=== PATIENT | male | born 1975 | race Caucasian/White ===

== ENCOUNTER 2016-12-08 12:01 | Emergency (ER) | payer SELFPAY ==
[~2016-12-08] VITALS: Ht 177.8 cm; Wt 85.0 kg
[~2016-12-08 12:01] MED LIST: LITHIUM; PERC5TAB12 PO
--- NOTE | 2016-12-08 12:08 | PD ---
HPI Chief Complaint: psychiatric symptoms Time Seen by Provider: 12:07 Travel History International Travel<30 days: No Contact w/Intl Traveler<30days: No History of Present Illness HPI 41-year-old male with PMH of schizophrenia presents to the ED under Burdick act for psychiatric evaluation. According to the Burdick act paper work the patient was "exhibiting signs of narcotic impairments, destroyed several items of personal property inside his residence and began yelling and screaming obscenities at his mother. Patricia was not able to hold rational conversation. He stated his mother was poisoning him with drugs and gas was being pumped throughout his residence in an effort to kill him. Patricia chased his mother out of the residence causing concern from the neighbors who in turn contacted law enforcement." On presentation to the emergency room the patient is twitching and moving erratically. He is threatening physical violence. He required injection of Haldol and Ativan. He is unable to provide any meaningful history. PFSH Past Medical History Blood Disorders: No Chemotherapy: No Diminished Hearing: No Psychiatric: No Immunizations Current: Yes Radiation Therapy: No Past Surgical History Other Surgery: Yes (RIGHT FACIAL SURGERY) Social History Alcohol Use: Yes Tobacco Use: Yes (1PK) Substance Use: Yes Allergies-Medications (Allergen,Severity, Reaction): Coded Allergies: No Known Allergies (Verified , 12/08/16) Reported Meds & Prescriptions Reported Meds & Active Scripts Active Review of Systems Except as stated in HPI: all other systems reviewed are Neg Physical Exam Exam Limitations: Uncooperative Narrative GENERAL: Well-nourished, well-developed white male in no acute distress. SKIN: Focused skin assessment warm/dry. Old crusted wound on the bridge of the nose. HEAD: Normocephalic. EYES: No scleral icterus. No injection or drainage. NECK: Supple, trachea midline. No JVD or lymphadenopathy. CARDIOVASCULAR: Regular rate and rhythm without murmurs, gallops, or rubs. RESPIRATORY: Breath sounds clear and equal bilaterally. No accessory muscle use. GASTROINTESTINAL: Abdomen soft, non-tender, nondistended. Active bowel sounds MUSCULOSKELETAL: No cyanosis, or edema. Patient moves from sitting to lying down positions easily. BACK: Nontender without obvious deformity. No CVA tenderness. Data Data Last Documented VS Vital Signs Date Time Temp Pulse Resp B/P (MAP) Pulse Ox O2 Delivery O2 Flow Rate FiO2 10/2/17 12:39 98.4 87 20 132/71 (91) 96 Room Air Orders Orders Complete Blood Count With Diff (12/08/16 12:07) Comprehensive Metabolic Panel (12/08/16 12:07) Psych Screen (12/08/16 12:07) Drug Screen, Random Urine (12/08/16 12:07) Alcohol (Ethanol) (12/08/16 12:07) Haloperidol Inj (Haldol Inj) (12/08/16 12:30) Lorazepam Inj (Ativan Inj) (12/08/16 12:30) Labs Laboratory Tests Test 12/08/16 12:30 12/08/16 12:35 White Blood Count 11.6 TH/MM3 Red Blood Count 4.55 MIL/MM3 Hemoglobin 13.1 GM/DL Hematocrit 39.3 % Mean Corpuscular Volume 86.5 FL Mean Corpuscular Hemoglobin 28.9 PG Mean Corpuscular Hemoglobin Concent 33.4 % Red Cell Distribution Width 13.0 % Platelet Count 236 TH/MM3 Mean Platelet Volume 8.3 FL Neutrophils (%) (Auto) 64.2 % Lymphocytes (%) (Auto) 20.6 % Monocytes (%) (Auto) 12.8 % Eosinophils (%) (Auto) 1.9 % Basophils (%) (Auto) 0.5 % Neutrophils # (Auto) 7.5 TH/MM3 Lymphocytes # (Auto) 2.4 TH/MM3 Monocytes # (Auto) 1.5 TH/MM3 Eosinophils # (Auto) 0.2 TH/MM3 Basophils # (Auto) 0.1 TH/MM3 CBC Comment DIFF FINAL Differential Comment Blood Urea Nitrogen 16 MG/DL Creatinine 1.16 MG/DL Random Glucose 91 MG/DL Total Protein 7.9 GM/DL Albumin 3.8 GM/DL Calcium Level 9.2 MG/DL Alkaline Phosphatase 87 U/L Aspartate Amino Transf (AST/SGOT) 93 U/L Alanine Aminotransferase (ALT/SGPT) 87 U/L Total Bilirubin 0.8 MG/DL Sodium Level 138 MEQ/L Potassium Level 3.1 MEQ/L Chloride Level 101 MEQ/L Carbon Dioxide Level 30.0 MEQ/L Anion Gap 7 MEQ/L Estimat Glomerular Filtration Rate 69 ML/MIN Ethyl Alcohol Level LESS THAN 3 MG/DL Urine Opiates Screen NEG Urine Barbiturates Screen NEG Urine Amphetamines Screen POS Urine Benzodiazepines Screen NEG Urine Cocaine Screen POS Urine Cannabinoids Screen NEG MDM Medical Decision Making Medical Screen Exam Complete: Yes Emergency Medical Condition: Yes Differential Diagnosis Adjustment disorder versus anxiety versus bipolar versus depression versus dementia versus electrolyte disorder versus malingering versus mood disorder versus ODD versus psychosis versus PTSD versus schizophrenia versus schizoaffective disorder versus substance-induced mood disorder versus other Narrative Course 41-year-old male with PMH of schizophrenia presents to the ED under Burdick act for psychiatric evaluation. Please see the iNeed act for details. On arrival to the ED the patient is combative, moving erratically, required IM injections of Haldol and Ativan. Patient was resistant to exam, however I was able to obtain a limited physical which was reassuring. No concerning abnormalities of the CBC or CMP. Tox screen positive for vitamins and cocaine. The patient is medically cleared and awaiting evaluation by the psychiatrist. Discharge will be per their recommendations. Diagnosis Primary Impression: Medical clearance for psychiatric admission Vita Montes Dec 08, 2016 12:08
[2016-12-08] MEDS ORDERED: LORazepam 2 MG/ML VIAL IM ONE (12:30)
[2016-12-08] MEDS ORDERED: HALOPERIDOL LACTATE 5 MG/ML AMP IM ONE (12:30)
[2016-12-08 12:39] VITALS: BP 132/71; PULSE 87; RESP 20; TEMP 98.4; O2SAT 96
[2016-12-08 12:58] LABS: AUTOMATED NEUTROPHIL # 7.5 TH/MM3 (1.8-7.7); BASOPHIL # 0.1 TH/MM3 (0-0.2); BASOPHIL % 0.5 % (0.0-2.0); EOSINOPHIL # 0.2 TH/MM3 (0-0.4); EOSINOPHIL % 1.9 % (0.0-4.0); HEMATOCRIT 39.3 % (39.0-51.0); HEMO FLAGS DIFF FINAL; LYMPH % 20.6 % (9.0-44.0); LYMPHOCYTE # 2.4 TH/MM3 (1.0-4.8); MEAN CELL VOLUME 86.5 FL (80.0-100.0); MEAN CORPUSCULAR HEMOGLOBIN 28.9 PG (27.0-34.0); MEAN CORPUSCULAR HGB CONC 33.4 % (32.0-36.0); MONO % 12.8 % (0.0-8.0); NEUT % 64.2 % (16.0-70.0); PLATELET COUNT 236 TH/MM3 (150-450); RED BLOOD COUNT 4.55 MIL/MM3 (4.50-5.90); WHITE BLOOD COUNT 11.6 TH/MM3 (4.0-11.0)
[2016-12-08 13:05] LABS: ALT (GPT) 87 U/L (12-78); ANION GAP 7 MEQ/L (5-15); AST (GOT) 93 U/L (15-37); BLOOD UREA NITROGEN 16 MG/DL (7-18); CHLORIDE 101 MEQ/L (98-107); GLOMERULAR FILTRATION RATE 69 ML/MIN (>89); POTASSIUM 3.1 MEQ/L (3.5-5.1); SODIUM (NA) 138 MEQ/L (136-145)
[2016-12-08 13:06] LABS: ALCOHOL LESS THAN 3 MG/DL (0-5)
[2016-12-08 13:07] LABS: ALKALINE PHOSPHATASE 87 U/L (45-117); TOTAL BILIRUBIN ADULT 0.8 MG/DL (0.2-1.0)
[2016-12-08 18:38] VITALS: BP 126/74; PULSE 70; RESP 18; O2SAT 97
[2016-12-09 07:15] VITALS: BP 117/58; PULSE 69; RESP 16; TEMP 98.1; O2SAT 97
[2016-12-09 10:06] VITALS: BP 121/58
[2016-12-09 10:46] VITALS: BP 114/69; PULSE 66; RESP 20
--- NOTE | 2016-12-09 12:40 | PD ---
History of Present Illness Chief Complaint: Psychiatric Symptoms Time Seen by Provider: 12:10 Travel History International Travel<30 Days: No Contact w/Intl Traveler<30days: No Known affected area: No Legal Status Legal Status: Burdick Act Burdick Act Signed By: Paradise Hoover History of Present Illness: History of Present Illness 41-year-old male with history of substance use disorder who presents to the ED under Burdick act for psychiatric evaluation. According to the Burdick act paper work the patient was "exhibiting signs of narcotic impairments, destroyed several items of personal property inside his residence and began yelling and screaming obscenities at his mother. Patricia was not able to hold rational conversation. He stated his mother was poisoning him with drugs and gas was being pumped throughout his residence in an effort to kill him. Patricia chased his mother out of the residence causing concern from the neighbors who in turn contacted law enforcement." On presentation to the emergency room the patient is twitching and moving erratically. He is threatening physical violence. He required injection of Haldol and Ativan. EMR reviewed. Current toxicology is positive for amphetamines as well as cocaine. He admits to taking some unknown substance prior to being placed under a Burdick act and states it was put in his drink. Patient is seen. He is alert and oriented. No eye contact. He continues to have twitching and non purposeful movements. He is circumstantial in his speech and is having difficulty staying on subject. He denies any hallucinations. Denies suicidal or homicidal ideation. Admits to recent drug use and is not interested in treatment for substance abuse. With his permission I spoke with his mother Chasity at [phone]. She states that he was acting strange when she got home last night and that he had broken some items in the house . She reports he has been diagnosed as having bipolar disorder in the past but that he is not in treatment and doesn't take his medications when prescribed. . PFSH Past Medical History Blood Disorders: No Chemotherapy: No Diminished Hearing: No Psychiatric: No Immunizations Current: Yes Radiation Therapy: No Schizophrenia: Yes Past Surgical History Surgical History: Unable to Obtain Other Surgery: Yes (RIGHT FACIAL SURGERY) Psychiatric History Psychiatric History Hx Psychiatric Treatment: PATIENT DENIES. HIS MOTHER REPORTED TO POLICE HX OF SCHIZOPHRENIA. IN HIS PREVIOUS MEDICAL RECORDS HERE, THERE IS NO MENTION OF ANY PSYCHIATRIC DIAGNOSIS History of Inpatient Treatment: No Guns or firearms in home: No Social History Lives with his mother Hx Alcohol Use: Yes Hx Tobacco Use: Yes (1PK) Hx Substance Use: Yes Substance Use Type: Crack, Amphetamines-Stimulants Other Substances Used: MEDICAL RECORDS INDICATE PAST SUBSTANCE ABUSE HISTORY Hx of Substance Use Treatment: Yes (Multiple at [facility]) Family Psychiatric History None reported Allergies-Medications (Allergen,Severity, Reaction): Coded Allergies: No Known Allergies (Verified , 12/08/16) Reported Meds & Prescriptions Reported Meds & Active Scripts Active Review of Systems ROS Limitations: Poor Historian Exam Alert: Yes [place]: Person Mood: Anxious, Other Affect: Restricted Speech: Clear, Circumstantial Eye Contact: None Memory Intact: Comment (Not t etsed) Hallucinations: Other (deneis any) Delusions: No Suicidal: Ideation (deneis any) Homicidal: Ideation (deneis any) Insight/Judgement Poor. Not impaired. MDM Medical Decision Making Medical Record Reviewed: Yes Assessment/Plan 41-year-old male with history of substance use disorder who presents to the ED under Burdick act for psychiatric evaluation. According to the Burdick act paper work the patient was "exhibiting signs of narcotic impairments, destroyed several items of personal property inside his residence and began yelling and screaming obscenities at his mother. Patricia was not able to hold rational conversation. He stated his mother was poisoning him with drugs and gas was being pumped throughout his residence in an effort to kill him. Patricia chased his mother out of the residence causing concern from the neighbors who in turn contacted law enforcement." Patient tested positive for amphetamines as well as cocaine. He is not psychotic at present time. No suicidal or homicidal ideation. Not ready to address his use of substances. Does not meet Burdick act criteria. He deos nto presnet an unstable mental illness as per Ba ker act. His symptoms when he was placed under the BA were most likely as the result of his substance use. BA will be lifted. Once he is able to ambulate well and is safe to be discharged he can be discharged. 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
--- NOTE | 2016-12-09 13:33 | PD ---
Physical Exam Time Seen by Provider: 13:32 Narrative Please refer to previous providers documentation for details on the patient's current visit. Data Data Last Documented VS Vital Signs Date Time Temp Pulse Resp B/P (MAP) Pulse Ox O2 Delivery O2 Flow Rate FiO2 12/09/16 10:46 66 20 114/69 (84) 12/09/16 10:06 97 12/09/16 07:15 98.1 Room Air Orders Orders Complete Blood Count With Diff (12/08/16 12:07) Comprehensive Metabolic Panel (12/08/16 12:07) Psych Screen (12/08/16 12:07) Drug Screen, Random Urine (12/08/16 12:07) Alcohol (Ethanol) (12/08/16 12:07) Haloperidol Inj (Haldol Inj) (12/08/16 12:30) Lorazepam Inj (Ativan Inj) (12/08/16 12:30) Diet Regular Basic (12/09/16 Breakfast) Diet Regular Basic (12/09/16 Lunch) Diet Regular Basic (12/09/16 Dinner) Labs Laboratory Tests Test 12/08/16 12:30 12/08/16 12:35 White Blood Count 11.6 TH/MM3 Red Blood Count 4.55 MIL/MM3 Hemoglobin 13.1 GM/DL Hematocrit 39.3 % Mean Corpuscular Volume 86.5 FL Mean Corpuscular Hemoglobin 28.9 PG Mean Corpuscular Hemoglobin Concent 33.4 % Red Cell Distribution Width 13.0 % Platelet Count 236 TH/MM3 Mean Platelet Volume 8.3 FL Neutrophils (%) (Auto) 64.2 % Lymphocytes (%) (Auto) 20.6 % Monocytes (%) (Auto) 12.8 % Eosinophils (%) (Auto) 1.9 % Basophils (%) (Auto) 0.5 % Neutrophils # (Auto) 7.5 TH/MM3 Lymphocytes # (Auto) 2.4 TH/MM3 Monocytes # (Auto) 1.5 TH/MM3 Eosinophils # (Auto) 0.2 TH/MM3 Basophils # (Auto) 0.1 TH/MM3 CBC Comment DIFF FINAL Differential Comment Blood Urea Nitrogen 16 MG/DL Creatinine 1.16 MG/DL Random Glucose 91 MG/DL Total Protein 7.9 GM/DL Albumin 3.8 GM/DL Calcium Level 9.2 MG/DL Alkaline Phosphatase 87 U/L Aspartate Amino Transf (AST/SGOT) 93 U/L Alanine Aminotransferase (ALT/SGPT) 87 U/L Total Bilirubin 0.8 MG/DL Sodium Level 138 MEQ/L Potassium Level 3.1 MEQ/L Chloride Level 101 MEQ/L Carbon Dioxide Level 30.0 MEQ/L Anion Gap 7 MEQ/L Estimat Glomerular Filtration Rate 69 ML/MIN Ethyl Alcohol Level LESS THAN 3 MG/DL Urine Opiates Screen NEG Urine Barbiturates Screen NEG Urine Amphetamines Screen POS Urine Benzodiazepines Screen NEG Urine Cocaine Screen POS Urine Cannabinoids Screen NEG MDM Medical Record Reviewed: Yes Supervised Visit with HEYDI: No Narrative Course Patient was seen and evaluated, medically cleared, and evaluated by psychiatry. Burdick act has been lifted. Patient will be discharged at this time. Diagnosis Primary Impression: substance Induced Psychosis Additional Impressions: Cocaine abuse Amphetamine abuse Patient Instructions: General Instructions Departure Forms: Tests/Procedures Disposition: 01 DISCHARGE HOME Condition: Stable Abi Mata Dec 09, 2016 13:32
== END 2016-12-09 14:38 | disposition home or self-care (01) ==
LOC: NEPD 12:01 → NEPJ 12-09 14:38
DX: F15.159 Other stimulant abuse with stimulant-induced psychotic disorder, unspecified (principal); F14.10 Cocaine abuse, uncomplicated; F20.9 Schizophrenia, unspecified; R25.3 Fasciculation; F31.9 Bipolar disorder, unspecified; F17.200 Nicotine dependence, unspecified, uncomplicated
CPT/HCPCS: 80053; 80307; 85025; 96372; 99284; J1630; J2060

== ENCOUNTER 2018-03-02 01:02 | Inpatient (IN) ==
[2018-03-02] MEDS ORDERED: Sod Chloride 0.9% Inj 1,000 ML IV.SIG ONE ×2 (01:17→03:21)
[2018-03-02] MEDS ORDERED: Haloperidol Inj 5 MG/ML Ampul IM ONE (01:17)
--- NOTE | 2018-03-02 01:29 | ED ---
HPI General Chief complaint: Psychiatric Symptoms Stated complaint: Psy/VCSO Time Seen by Provider: 03/02/18 01:03 Source: EMS Mode of arrival: EMS Limitations: altered mental status History of Present Illness HPI Narrative: The patient is a 42 year old male who presents to the [facility] emergency department with a history of reportedly not feeling well for the last 2 days. He reports that he believes that he may have been poisoned. He reports that he has been feeling palpitations. He reports that it was relieved with standing in the shower. He thought that he was beginning to feel better, however after after he ate to apples in a glass of water the symptoms began to recur this evening. The patient on arrival is noted to be agitated. The patient was brought in by ambulance services. The patient has pressured speech and is moving erratically. The patient in route to this facility reportedly pulled off a toenail and fingernail stating that his body was falling apart. The patient reports having nausea and vomiting all day today, however he has difficulty quantifying exactly how many times. He denies having any diarrhea. Most of the review of systems is limited in this patient as he has difficulty staying on task to answer questions. The patient's electronic medical record was reviewed to elicit additional history. The patient was placed under a [place] act prior to arrival by the police as according to the [place] act the patient expressed suicidal ideations because of generalized body pain. Home Medications Medication Instructions Recorded Confirmed No Known Home Medications 03/02/18 03/02/18 Allergies Allergy/AdvReac Type Severity Reaction Status Date / Time No Known Allergies Allergy Verified 03/02/18 01:34 Review of Systems ROS Unobtainable ROS Unobtainable: unobtainable due to mental condition PMFSH Family History Family History Other Family history unknown Social History Social History Substance History: Unable to Obtain Smoking Status: Current every day smoker Tobacco Type: Cigarettes Packs Per Day: 1 Cigarettes Per Day: 20.0 How Often Do You Have a Drink Containing Alcohol: 2 to 4 times a month Recent Out of Country Travel within the Last 8 Weeks: No Exam Const General: other (Agitated appearing, noted to have psychomotor agitation, pressured speech.) Nutritional Appearance: well nourished Orientation: alert, awake and oriented x3 HENMT Head: normocephalic and atraumatic Nose: no nasal discharge and no epistaxis Mouth: moist mucous membranes Throat: posterior oropharynx normal and uvula midline Eyes Sclera: normal sclerae Pupils: PERRL Neck Neck: trachea midline and no JVD Resp Effort & Inspection: no use of accessory muscles Auscultation: clear to auscultation bilaterally Cardio Rate: regular rate Rhythm: regular rhythm Heart Sounds: no murmurs GI Inspection: non-distended Palpation: soft, no hepatosplenomegaly and nontender External: other (On examination of the genital area the patient is noted to have erythema of the penis and scrotum with skin irritation and breakdown along the ventral surface of the penis with weeping drainage. There is no odor noted. There is some tenderness to touch. There is no induration. No fluctuance or abscess formation.) Skin General: dry skin (warm) Neuro General: alert and awake Cranial Nerves: other Speech: speech normal Motor: no movement abnormalities noted Extrem General: normal to inspection (Except the patient has removed the toenail off of the great toe on the left, and the fingernail off of the right thumb. No active bleeding is noted.), no clubbing, no cyanosis and no edema Psych Appearance: disheveled Speech and Movement: pressured speech and restless Mood: anxious mood, paranoid, angry and irritable mood Affect: anxious affect, hostile and irritable affect Thought Process: flight of ideas Thought Content: suicidality Judgment: limited Course Initial Documented Vital Signs Respiratory Rate 22 03/02/18 01:30 Pulse Oximetry 99 03/02/18 01:30 Last Documented Vital Signs Pulse Rate 96 H 03/02/18 05:05 Respiratory Rate 18 03/02/18 05:05 Blood Pressure 121/84 03/02/18 05:05 Pulse Oximetry 94 L 03/02/18 05:05 Critical Care Time Critical Care Time: Yes Total Critical Care Time: 33 Attestation: Aggregate critical care time was 33 minutes. Time to perform other separately billable procedures was not included in the critical care time. My time did not include minutes spent treating any other patients simultaneously or on activities that did not directly contribute to the patient's treatment. The services I provided to this patient were to treat and/or prevent clinically significant deterioration that could result in: Cardiovascular collapse from cardiac dysrhythmia, versus fluid overload from crystalloid resuscitation, versus cardiac arrhythmia I provided critical care services requiring my management, as noted below: Chart data review, documentation time, medication orders and management, vital sign assessments/reviewing monitor data, ordering and reviewing lab tests, ordering and interpreting/reviewing x-rays and diagnostic studies, care of the patient and discussion of the patient with the admitting physicians. Medical Decision Making MDM Narrative Medical decision making narrative: During the course of the patient's emergency department visit, the patient's history, examination, and differential diagnosis were reviewed with the patient. The patient was placed on a media monitor with oximetry and frequent blood pressure monitoring. The patient had IV access obtained and blood work sent for analysis. Diagnostic evaluation was started regarding the patient's acute psychosis. The patient was initially provided normal saline 1 L IV fluid bolus, Haldol 5 mg IM, Ativan 1 mg IV. Diagnostic studies are remarkable for leukocytosis with a white count of 22.6 which is likely related to the patient's acute agitation, hemoglobin 15.3, platelets 315, neutrophils 84.5, lymphocytes 6.9, monocytes 8.3, chemistries remarkable for sodium of 122, potassium 5.3, BUN is 111, creatinine 6.74, glucose 122, magnesium 3.2, AST is 516, ALT 168, total protein 9.3, TSH 1.75. Alcohol level is less than 3. Chest x-ray shows no evidence of acute cardiopulmonary disease. A call was placed out to the campaign associate airconditioning engineer, Dr. Muniz. I spoke to him at approximately 3:30 AM regarding this patient's case. He recommended that the patient undergo a CT scan of the abdomen and pelvis without IV contrast. His CPK was also added to the patient's workup to evaluate for possible underlying rhabdomyolysis. The patient was given a second liter of normal saline IV fluids. The patient's CPK also came back as [phone], consistent with rhabdomyolysis. The patient's case including history, pertinent physical examination findings, and laboratory studies were discussed with Dr. Villarreal. It was agreed that the patient would be admitted to the hospitalist service. The patient's results were discussed with the patient, including the plan of care. I explained that further testing and/ or monitoring is indicated based on the patient's history, examination, and/ or laboratory findings. Therefore, I recommended admission for additional evaluation. The patient expressed understanding and was agreeable with this plan. The patient was admitted to the hospital in guarded condition and sent to a bed under the care of the [facility] service. Medical Screen Exam Complete: Yes Emergency Medical Condition: Yes Differential Diagnosis Differential Diagnosis: Substance-induced mood disorder, versus decompensated schizophrenia with acute psychosis Lab Data Result diagrams: 03/02/18 01:30 03/02/18 01:30 Lab Results 03/02/18 03/02/18 03/02/18 Range/Units 01:30 01:30 01:30 WBC 22.6 H (4.0-11.0) th/mm3 RBC 5.14 (4.50-5.90) mil/mm3 Hgb 15.3 (13.0-17.0) gm/dL Hct 42.4 (39.0-51.0) % MCV 82.6 (80.0-100.0) fL MCH 29.7 (27.0-34.0) pg MCHC 36.0 (32.0-36.0) % RDW 13.1 (11.6-17.2) % Plt Count 315 (150-450) th/mm3 MPV 8.8 (7.0-11.0) fL Prelim Diff (Auto) Slide review pending Neut % (Auto) 84.5 H (16.0-70.0) % Lymph % (Auto) 6.9 L (9.0-44.0) % [place] % (Auto) 8.3 H (0.0-8.0) % Eos % (Auto) 0.0 (0.0-4.0) % Baso % (Auto) 0.3 (0.0-2.0) % Neut # (Auto) 19.1 H (1.8-7.7) th/mm3 Lymph # (Auto) 1.6 (1.0-4.8) th/mm3 [place] # (Auto) 1.9 H (0.0-0.9) th/mm3 Eos # (Auto) 0.0 (0.0-0.4) th/mm3 Baso # (Auto) 0.1 (0.0-0.2) th/mm3 WBC Differential . Diff Scan Auto diff confirmed Differential Comment . Toxic Vacuolation Present H (None) Platelet Estimate Normal (Normal) Platelet Morphology Normal (Normal) RBC Morphology Normal (Normal) Sodium (136-145) meq/L Potassium (3.5-5.1) meq/L Chloride (98-107) meq/L Carbon Dioxide (21.0-32.0) meq/L Anion Gap (5-15) meq/L BUN (7-18) mg/dL Creatinine (0.60-1.30) mg/dL Estimated GFR (>89) mL/min Random Glucose (74-106) mg/dL Calcium (8.5-10.1) mg/dL Magnesium (1.5-2.5) mg/dL Total Bilirubin (0.2-1.0) mg/dL AST (15-37) U/L ALT (12-78) U/L Alkaline Phosphatase (45-117) U/L Total Creatine Kinase (39-308) U/L CK-MB (CK-2) (0.5-3.6) ng/mL CK-MB (CK-2) % (0.0-4.0) % Troponin I (0.02-0.05) ng/mL Total Protein (6.4-8.2) g/dL Albumin (3.4-5.0) g/dL TSH (0.358-3.740) uIU/mL Urine Color (Yellw/Straw) Urine Clarity (Clear) Urine pH (5.0-8.5) Ur Specific [place] (1.002-1.035) Urine Protein (Neg-Trace) mg/dL Urine Glucose (UA) (Negative) mg/dL Urine Ketones (Negative) mg/dL Urine Occult Blood (Negative) Urine Nitrate (Negative) Urine Bilirubin (Negative) Urine Urobilinogen (Less than 2) mg/dL Ur Leukocyte Esterase (Negative) Urine RBC (0-3) /hpf Urine WBC (0-5) /hpf Ur Squamous Epith Cells (0-5) /hpf Amorphous Sediment (None) /hpf Urine Bacteria (None) /hpf Hyaline Casts (0-3) /lpf Urine Mucus (Occasional) /lpf Urine Yeast (None) /hpf Micro UA Comment Ur Microscopic Review Urine Culture Comments Salicylates 2.7 L (2.8-20.0) mg/dL Urine Opiates Screen (Neg) Acetaminophen Less than 2.0 L (10.0-30.0) mcg/mL Ur Barbiturates Screen (Neg) Ur Amphetamines Screen (Neg) U Benzodiazepines Scrn (Neg) Urine Cocaine Screen (Neg) U Cannabinoids Screen (Neg) Serum Alcohol (0-5) mg/dL 03/02/18 03/02/18 03/02/18 Range/Units 01:30 01:30 03:30 WBC (4.0-11.0) th/mm3 RBC (4.50-5.90) mil/mm3 Hgb (13.0-17.0) gm/dL Hct (39.0-51.0) % MCV (80.0-100.0) fL MCH (27.0-34.0) pg MCHC (32.0-36.0) % RDW (11.6-17.2) % Plt Count (150-450) th/mm3 MPV (7.0-11.0) fL Prelim Diff (Auto) Neut % (Auto) (16.0-70.0) % Lymph % (Auto) (9.0-44.0) % [place] % (Auto) (0.0-8.0) % Eos % (Auto) (0.0-4.0) % Baso % (Auto) (0.0-2.0) % Neut # (Auto) (1.8-7.7) th/mm3 Lymph # (Auto) (1.0-4.8) th/mm3 [place] # (Auto) (0.0-0.9) th/mm3 Eos # (Auto) (0.0-0.4) th/mm3 Baso # (Auto) (0.0-0.2) th/mm3 WBC Differential Diff Scan Differential Comment Toxic Vacuolation (None) Platelet Estimate (Normal) Platelet Morphology (Normal) RBC Morphology (Normal) Sodium 122 L* (136-145) meq/L Potassium 5.3 H (3.5-5.1) meq/L Chloride 80 L (98-107) meq/L Carbon Dioxide 20.0 L (21.0-32.0) meq/L Anion Gap 22 H (5-15) meq/L BUN 111 H (7-18) mg/dL Creatinine 6.74 H (0.60-1.30) mg/dL Estimated GFR 9 L (>89) mL/min Random Glucose 122 H (74-106) mg/dL Calcium 8.6 (8.5-10.1) mg/dL Magnesium 3.2 H (1.5-2.5) mg/dL Total Bilirubin 0.8 (0.2-1.0) mg/dL AST 516 H (15-37) U/L ALT 168 H (12-78) U/L Alkaline Phosphatase 76 (45-117) U/L Total Creatine Kinase 77238 H (39-308) U/L CK-MB (CK-2) 287.4 H (0.5-3.6) ng/mL CK-MB (CK-2) % 0.7 (0.0-4.0) % Troponin I 0.05 (0.02-0.05) ng/mL Total Protein 9.3 H (6.4-8.2) g/dL Albumin 4.4 (3.4-5.0) g/dL TSH 1.750 (0.358-3.740) uIU/mL Urine Color (Yellw/Straw) Urine Clarity (Clear) Urine pH (5.0-8.5) Ur Specific [place] (1.002-1.035) Urine Protein (Neg-Trace) mg/dL Urine Glucose (UA) (Negative) mg/dL Urine Ketones (Negative) mg/dL Urine Occult Blood (Negative) Urine Nitrate (Negative) Urine Bilirubin (Negative) Urine Urobilinogen (Less than 2) mg/dL Ur Leukocyte Esterase (Negative) Urine RBC (0-3) /hpf Urine WBC (0-5) /hpf Ur Squamous Epith Cells (0-5) /hpf Amorphous Sediment (None) /hpf Urine Bacteria (None) /hpf Hyaline Casts (0-3) /lpf Urine Mucus (Occasional) /lpf Urine Yeast (None) /hpf Micro UA Comment Ur Microscopic Review Urine Culture Comments Salicylates (2.8-20.0) mg/dL Urine Opiates Screen Neg (Neg) Acetaminophen (10.0-30.0) mcg/mL Ur Barbiturates Screen Neg (Neg) Ur Amphetamines Screen Pos H (Neg) U Benzodiazepines Scrn Neg (Neg) Urine Cocaine Screen Neg (Neg) U Cannabinoids Screen Neg (Neg) Serum Alcohol Less than 3 (0-5) mg/dL 03/02/18 Range/Units 03:30 WBC (4.0-11.0) th/mm3 RBC (4.50-5.90) mil/mm3 Hgb (13.0-17.0) gm/dL Hct (39.0-51.0) % MCV (80.0-100.0) fL MCH (27.0-34.0) pg MCHC (32.0-36.0) % RDW (11.6-17.2) % Plt Count (150-450) th/mm3 MPV (7.0-11.0) fL Prelim Diff (Auto) Neut % (Auto) (16.0-70.0) % Lymph % (Auto) (9.0-44.0) % [place] % (Auto) (0.0-8.0) % Eos % (Auto) (0.0-4.0) % Baso % (Auto) (0.0-2.0) % Neut # (Auto) (1.8-7.7) th/mm3 Lymph # (Auto) (1.0-4.8) th/mm3 [place] # (Auto) (0.0-0.9) th/mm3 Eos # (Auto) (0.0-0.4) th/mm3 Baso # (Auto) (0.0-0.2) th/mm3 WBC Differential Diff Scan Differential Comment Toxic Vacuolation (None) Platelet Estimate (Normal) Platelet Morphology (Normal) RBC Morphology (Normal) Sodium (136-145) meq/L Potassium (3.5-5.1) meq/L Chloride (98-107) meq/L Carbon Dioxide (21.0-32.0) meq/L Anion Gap (5-15) meq/L BUN (7-18) mg/dL Creatinine (0.60-1.30) mg/dL Estimated GFR (>89) mL/min Random Glucose (74-106) mg/dL Calcium (8.5-10.1) mg/dL Magnesium (1.5-2.5) mg/dL Total Bilirubin (0.2-1.0) mg/dL AST (15-37) U/L ALT (12-78) U/L Alkaline Phosphatase (45-117) U/L Total Creatine Kinase (39-308) U/L CK-MB (CK-2) (0.5-3.6) ng/mL CK-MB (CK-2) % (0.0-4.0) % Troponin I (0.02-0.05) ng/mL Total Protein (6.4-8.2) g/dL Albumin (3.4-5.0) g/dL TSH (0.358-3.740) uIU/mL Urine Color Yellow (Yellw/Straw) Urine Clarity Cloudy H (Clear) Urine pH 5.0 (5.0-8.5) Ur Specific [place] 1.016 (1.002-1.035) Urine Protein 100 H (Neg-Trace) mg/dL Urine Glucose (UA) Negative (Negative) mg/dL Urine Ketones Trace H (Negative) mg/dL Urine Occult Blood Large H (Negative) Urine Nitrate Negative (Negative) Urine Bilirubin Negative (Negative) Urine Urobilinogen Less than 2 (Less than 2) mg/dL Ur Leukocyte Esterase Negative (Negative) Urine RBC 5 H (0-3) /hpf Urine WBC 11 H (0-5) /hpf Ur Squamous Epith Cells <1 (0-5) /hpf Amorphous Sediment Many H (None) /hpf Urine Bacteria Rare H (None) /hpf Hyaline Casts 25 (0-3) /lpf Urine Mucus Few H (Occasional) /lpf Urine Yeast Occasional H (None) /hpf Micro UA Comment Culture indicated Ur Microscopic Review Not Reportable Urine Culture Comments Culture indicated Salicylates (2.8-20.0) mg/dL Urine Opiates Screen (Neg) Acetaminophen (10.0-30.0) mcg/mL Ur Barbiturates Screen (Neg) Ur Amphetamines Screen (Neg) U Benzodiazepines Scrn (Neg) Urine Cocaine Screen (Neg) U Cannabinoids Screen (Neg) Serum Alcohol (0-5) mg/dL Imaging Data Radiologist's impression: Chest X-Ray 03/02/18 01:17 CONCLUSION: 1. No acute abnormality or significant interval change. Abdomen/Pelvis CT 03/02/18 03:28 CONCLUSION: 1. No definitive acute CT abnormality. 2. Ancillary findings, as above. ECG Data Attestation: I personally reviewed and interpreted this ECG as follows: Interpretation: The patient had an EKG done that shows a sinus rhythm heart rate of 92, QRS duration is 97 ms, QTC [address] segment elevation. T waves are inverted in V1. Discharge Plan Discharge Disposition Patient Disposition: ED Admit(ED Internal Use Only) Discharge Order Discharge Orders: ED Use Only Admit Order (Routine); Ordered 03/02/18 Ordered By: Lisseth Awan Discharge Details Diagnosis: Acute renal failure, Rhabdomyolysis, Psychosis Physicians Team ED Provider: Lisseth Awan Primary Care Provider: UNKNOWN, Attending Provider: Leela Villarreal Other Providers: Avni Muniz Discharge Interventions Interventions: Vital Signs Last Done: 03/02/18 04:01 Status ED Status: Admitted Patient
[2018-03-02 01:58] LABS: Baso # (Auto) 0.1 th/mm3 (0.0-0.2); Baso % (Auto) 0.3 % (0.0-2.0); Hematocrit 42.4 % (39.0-51.0); Hemoglobin 15.3 gm/dL (13.0-17.0); Lymph # (Auto) 1.6 th/mm3 (1.0-4.8); Lymph % (Auto) 6.9 % (9.0-44.0); Mean Corpuscular Hemoglobin 29.7 pg (27.0-34.0); Mean Corpuscular Volume 82.6 fL (80.0-100.0); Mean Platelet Volume 8.8 fL (7.0-11.0); Mono # (Auto) 1.9 th/mm3 (0.0-0.9); Mono % (Auto) 8.3 % (0.0-8.0); Neut # (Auto) 19.1 th/mm3 (1.8-7.7); Neut % (Auto) 84.5 % (16.0-70.0); Platelet Count 315 th/mm3 (150-450); Red Blood Count 5.14 mil/mm3 (4.50-5.90); Red Cell Distribution Width 13.1 % (11.6-17.2); White Blood Count 22.6 th/mm3 (4.0-11.0)
--- NOTE | 2018-03-02 02:07 | XR ---
EXAM DATE: 03/02/2018 1:55 AM EST AGE/SEX: 42 years / Male INDICATIONS: Shortness of breath. Psych eval. CLINICAL DATA: This is the patient's initial encounter. Patient reports that signs and symptoms have been present for 1 day and indicates a pain score of Nonresponsive. MEDICAL/SURGICAL HISTORY: Non-responsive. Non-responsive. [place] [facility] [place]. . FINDINGS: A single AP view of the chest demonstrates the lungs to be symmetrically aerated without evidence of mass, infiltrate or effusion. The cardiomediastinal contours are unremarkable. Osseous structures a re intact. CONCLUSION: 1. No acute abnormality or significant interval change. Electronically signed by: Colby Koenig MD Board Certified Radiologist 03/02/2018 2:06 AM DIANE Dupree
[2018-03-02 02:37] LABS: Alanine Aminotransferase 168 U/L (12-78); Albumin 4.4 g/dL (3.4-5.0); Alkaline Phosphatase 76 U/L (45-117); Anion Gap 22 meq/L (5-15); Aspartate Aminotransferase 516 U/L (15-37); Blood Urea Nitrogen 111 mg/dL (7-18); Calcium 8.6 mg/dL (8.5-10.1); Chloride 80 meq/L (98-107); Glomerular Filtration Rate 9 mL/min (>89); Glucose,Random 122 mg/dL (74-106); Magnesium 3.2 mg/dL (1.5-2.5); Potassium 5.3 meq/L (3.5-5.1); Total Protein 9.3 g/dL (6.4-8.2)
[2018-03-02 02:40] LABS: Sodium 122 meq/L (136-145)
[2018-03-02 02:49] LABS: RBC Morphology Normal (Normal); Toxic Vacuolation Present
[2018-03-02 02:50] LABS: Platelet Estimate Normal (Normal); Platelet Morphology Normal (Normal)
[2018-03-02 04:13] LABS: Amorphous Sediment,Urine Many /hpf; Bacteria,Urine Rare /hpf; Bilirubin,Urine Negative (Negative); Clarity,Urine Cloudy (Clear); Color,Urine Yellow (Yellw/Straw); Glucose,Urine (UA) Negative (Negative); Hyaline Casts,Urine 25 /lpf (0-3); Leukocyte Esterase,Urine Negative (Negative); Mucus,Urine Few /lpf (Occasional); Nitrite,Urine Negative (Negative); Specific Gravity,Urine 1.016 (1.002-1.035); Squamous Epithelial Cell,Urine <1 /hpf (0-5)
[2018-03-02] MEDS ORDERED: Bisacodyl 10 MG Supp RECTAL PRN (04:18)
[2018-03-02] MEDS ORDERED: Acetaminophen 325 MG Tablet PO PRN (04:18)
[2018-03-02] MEDS ORDERED: Sod Chloride 0.9% Inj 1,000 ML IV.CONT SCH (04:30)
[2018-03-02 04:32] LABS: Troponin I 0.05 ng/mL (0.02-0.05)
--- NOTE | 2018-03-02 04:36 | P.HP ---
History of Present Illness Service: [facility] Primary Care Physician: UNKNOWN History of Present Illness: 42-year-old male with a past medical history significant for polysubstance abuse and schizophrenia presents to the emergency department by EMS for evaluation of multiple complaints. At the time of our interview, the patient has received Haldol and Ativan and is sleeping but does not answer questions. He will follow commands. According to ED documentation, patient has not been feeling well for the last 2 days. He reports he believes that he may have been poisoned. He endorses heart palpitations that were relieved with standing in the shower. He was agitated in route to the hospital and on arrival and pulled a toenail and fingernail off in front of EMS stating that his body was falling apart. He states that he had nausea and vomiting all day however was unable to quantify further. He has no complaints at the time of our interview. Further review of systems limited secondary to mental status. Inpatient Certification: I certify that the inpatient services were ordered in accordance with Medicare regulations governing the order. This includes certification that hospital inpatient services are reasonable and necessary and in the case of services not specified as inpatient-only under 42 CFR 419.22(n), that they are appropriately provided as inpatient services in accordance to with the 2-midnight benchmark under 43 CFR 412.3(e) Estimated Total Length of Stay (Days): 2 Plans for Post Hospital Care: Not yet determined Review of Systems unobtainable due to mental status PMFSH - History History Provided By: Patient - Medical History Medical History: Medical History (Last Reviewed 03/02/18 @ 04:26 by Leela Villarreal MD) Polysubstance abuse Schizophrenia - Surgical History Surgical History: Surgical History (Last Reviewed 03/02/18 @ 04:26 by Leela Villarreal MD) History of facial surgery - Family History Family History: Family History (Last Updated 03/02/18 @ 04:26 by Leela Villarreal MD) Other Family history unknown - Social History I have reviewed the patient's Social History: Yes - Tobacco History Tobacco Use In Past 30 Days: Yes Smoking Status: Current every day smoker Tobacco Type: Cigarettes Packs Per Day: 1 Cigarettes Per Day: 20.0 - Alcohol History How Often Do You Have a Drink Containing Alcohol: 2 to 4 times a month - Substance Use History Substance History: Unable to Obtain - Travel History Recent Travel Out of the Country Within the Last 8 Weeks: No - Immunization History Tetanus Immunization: <5 Years Medications and Allergies Active Medications: Active Medications Acetaminophen (Tylenol) 650 mg PO Q4H PRN PRN Reason: Temp > 100.4 Al Hydroxide/Mg Hydroxide (Milk Of Magnesia Liq) 30 ml PO Q12H PRN PRN Reason: Mild Constipation Bisacodyl (Dulcolax Supp) 10 mg RECTAL DAILY PRN PRN Reason: SEVERE CONSITIPATION Sodium Chloride (Ns Inj) 1,000 mls @ 100 mls/hr IV.CONT .Q10H [facility] Lactulose (Lactulose Liq) 30 ml PO DAILY PRN PRN Reason: SEVERE CONSITIPATION Ondansetron HCl (Zofran Inj) 4 mg IV.PUSH Q6H PRN PRN Reason: NAUSEA OR VOMITING Senna/Docusate Sodium (Layne-Colace) 1 tab PO BID [facility] Sennosides (Senokot) 17.2 mg PO Q12H PRN PRN Reason: Moderate Constipation Sodium Chloride (Ns Flush) 2 ml IV.FLUSH BID [facility] Sodium Chloride (Ns Flush) 2 ml IV.FLUSH PRN PRN PRN Reason: FLUSH AFTER USING IV ACCESS Allergies Allergy/AdvReac Type Severity Reaction Status Date / Time No Known Allergies Allergy Verified 03/02/18 01:34 Home Medications Medication Instructions Recorded Confirmed Type No Known Home Medications 03/02/18 03/02/18 History Exam Vital signs: Vital Signs 03/02/18 01:30 03/02/18 01:34 03/02/18 04:01 Pulse Rate 91 H Respiratory Rate 22 22 18 Blood Pressure 131/69 Pulse Oximetry 99 95 Intake & Output 03/01/18 03/01/18 03/02/18 06:59 18:59 06:59 Intake Total 1000 / 1000 Balance 1000 / 1000 Weight 81.647 kg Intake: IV 1000 / 1000 NS Inj 1,000 ML @ Wide Open IV. 1000 / 1000 SIG BOLUS ONE Rx#:[id number] Narrative: Gen.: No acute distress Head: Normocephalic. Atraumatic. EENT: Pupils equal round and reactive to light. Nose without drainage. Airway intact. Throat without injection. Cardiovascular: Regular rate and rhythm. No murmurs, rubs or gallops. Respiratory: Lungs clear to auscultation bilaterally. No wheezes or rhonchi. Abdomen: Soft, nontender, nondistended. No peritoneal signs. : Godfrey in place draining isela urine. Patient with erythema of the penis and scrotum with surrounding skin irritation and breakdown along the ventral surface of the penis with weeping drainage, worse at the base. Significant tenderness to touch. No induration. No fluctuance or palpable abscesses. No odors. Musculoskeletal: No gross deformities. No edema. Skin: No obvious rashes or erythema. Neuro: Sensory and motor grossly intact. Cranial nerves II through XII grossly intact. Results - Labs CBC & Chem 7: 03/02/18 01:30 03/02/18 01:30 Labs: Laboratory Results - last 24 hr 03/02/18 03/02/18 03/02/18 01:30 01:30 03:30 WBC 22.6 H RBC 5.14 Hgb 15.3 Hct 42.4 MCV 82.6 MCH 29.7 MCHC 36.0 RDW 13.1 Plt Count 315 MPV 8.8 Prelim Diff (Auto) Slide review pending Neut % (Auto) 84.5 H Lymph % (Auto) 6.9 L [place] % (Auto) 8.3 H Eos % (Auto) 0.0 Baso % (Auto) 0.3 Neut # (Auto) 19.1 H Lymph # (Auto) 1.6 [place] # (Auto) 1.9 H Eos # (Auto) 0.0 Baso # (Auto) 0.1 WBC Differential . Diff Scan Auto diff confirmed Differential Comment . Toxic Vacuolation Present H Platelet Estimate Normal Platelet Morphology Normal RBC Morphology Normal Sodium 122 L* Potassium 5.3 H Chloride 80 L Carbon Dioxide 20.0 L Anion Gap 22 H BUN 111 H Creatinine 6.74 H Estimated GFR 9 L Random Glucose 122 H Calcium 8.6 Magnesium 3.2 H Total Bilirubin 0.8 AST 516 H ALT 168 H Alkaline Phosphatase 76 Total Protein 9.3 H Albumin 4.4 TSH 1.750 Urine Color Yellow Urine Clarity Cloudy H Urine pH 5.0 Ur Specific [place] 1.016 Urine Protein 100 H Urine Glucose (UA) Negative Urine Ketones Trace H Urine Occult Blood Large H Urine Nitrate Negative Urine Bilirubin Negative Urine Urobilinogen Less than 2 Ur Leukocyte Esterase Negative Urine RBC 5 H Urine WBC 11 H Ur Squamous Epith Cells <1 Amorphous Sediment Many H Urine Bacteria Rare H Hyaline Casts 25 Urine Mucus Few H Urine Yeast Occasional H Micro UA Comment Culture indicated Ur Microscopic Review Not Reportable Urine Culture Comments Culture indicated Serum Alcohol Less than 3 - Imaging Impressions Chest X-Ray 03/02/18 01:17 CONCLUSION: 1. No acute abnormality or significant interval change. Caprini VTE Risk Assessment Caprini VTE Risk Assessment: No/Low Risk (score <= 1) Caprini Risk Assessment Model: Point Value = 1 Point Value = 2 Point Value = 3 Point Value = 5 Age 41-60 Minor surgery BMI > 25 kg/m2 Swollen legs Varicose veins or History of unexplained or recurrent spontaneous Oral contraceptives or hormone replacement Sepsis (< 1 month) Serious lung disease, including pneumonia (< 1 month) Abnormal pulmonary function Acute myocardial infarction Congestive heart failure (< 1 month) History of inflammatory bowel disease Medical patient at bed rest Age 61-74 Arthroscopic surgery Major open surgery (> 45 min) Laparoscopic surgery (> 45 min) Malignancy Confined to bed (> 72 hours) Immobilizing plaster cast Central venous access Age >= 75 History of VTE Family history of VTE Factor V Leiden Prothrombin [id number] Lupus anticoagulant Anticardiolipin antibodies Elevated serum homocysteine Heparin-induced thrombocytopenia Other congenital or acquired thrombophilia Stroke (< 1 month) Elective arthroplasty Hip, pelvis, or leg fracture Acute spinal cord injury (< 1 month) Prophylaxis Regimen: Total Risk Factor Score Risk Level Prophylaxis Regimen 0-1 Low Early ambulation 2 Moderate Order ONE of the following: *Sequential Compression Device (SCD) *Heparin 5000 units SQ BID 3-4 Higher Order ONE of the following medications: *Heparin 5000 units SQ TID *Enoxaparin/Lovenox 40 mg SQ daily (WT < 150 kg, CrCl > 30 mL/min) *Enoxaparin/Lovenox 30 mg SQ daily (WT < 150 kg, CrCl > 10-29 mL/min) *Enoxaparin/Lovenox 30 mg SQ BID (WT < 150 kg, CrCl > 30 mL/min) AND/OR *Sequential Compression Device (SCD) 5 or more Highest Order ONE of the following medications: *Heparin 5000 units SQ TID (Preferred with Epidurals) *Enoxaparin/Lovenox 40 mg SQ daily (WT < 150 kg, CrCl > 30 mL/min) *Enoxaparin/Lovenox 30 mg SQ daily (WT < 150 kg, CrCl > 10-29 mL/min) *Enoxaparin/Lovenox 30 mg SQ BID (WT < 150 kg, CrCl > 30 mL/min) AND *Sequential Compression Device (SCD) Assessment and Plan - Plan Assessment/plan: 1. Acute renal failure BUN/creatinine 111/6.74, baseline creatinine 1.0 CT of the abdomen/pelvis pending Nephrology consulted, appreciate assistance Godfrey placed and draining isela urine IV fluid hydration Potassium 5.3 2. Acute psychosis Patient with history of methamphetamine abuse and schizophrenia, unclear if he is currently taking medications Psychiatry consulted, appreciate assistance 3. Hyponatremia Sodium 122 Suspect secondary to alcohol abuse Normal saline Repeat BMP at noon 4. Transaminitis Suspect secondary to alcohol abuse Hepatitis profile pending Monitor 5. Yeast Erythema and drainage of the genital region Culture pending Consistent with yeast Nystatin powder FEN Renal diet Electrolytes: As above NS at 100 cc/hour
[2018-03-02 04:57] LABS: Amphetamine Screen,Urine Pos (Neg); Barbiturate Screen,Urine Neg (Neg); Cannabinoid Screen,Urine Neg (Neg); Cocaine Screen,Urine Neg (Neg)
--- NOTE | 2018-03-02 05:05 | CT ---
EXAM DATE: 03/02/2018 3:53 AM EST AGE/SEX: 42 years / Male INDICATIONS: Pelvic pain. CLINICAL DATA: This is the patient's initial encounter. Patient reports that signs and symptoms have been present for 1 day and indicates a pain score of Nonresponsive. MEDICAL/SURGICAL HISTORY: . Substance abuse None. RADIATION DOSE: 8.97 CTDI (mGy) [place] [facility] [place] 12/11/[place]. . TECHNIQUE: Multiple contiguous axial images were obtained through the abdomen. Images were obtained using multiple row detector helical technique. Using automated exposure control and adjustment of the mA and/or kV according to patient size, radiation dose was kept as low as reasonably achievable to o btain optimal diagnostic quality images. DICOM format image data is available electronically for rev iew and comparison. FINDINGS: LOWER LUNGS: Minimal groundglass opacities at the lung bases. LIVER: Diffusely homogeneous density without intrahepatic ductal dilatation or volume loss. SPLEEN: Homogeneous density without enlargement. PANCREAS: Grossly unremarkable. KIDNEYS: Kidneys are symmetrical in size without evidence for radiopaque renal calculi or hydronephr osis. No significant contour deforming renal abnormality. ADRENAL GLANDS: Unremarkable. AORTA: Thu-aneurysmal. BOWEL/MESENTERY: The bowel loops are grossly unremarkable. The cecum and sigmoid colon have a braden l configuration. No significant free fluid or drainable fluid collections. No free air. ABDOMINAL WALL: Small periumbilical anterior abdominal wall hernia. BLADDER: Decompressed secondary to Godfrey catheter. REPRODUCTIVE: Grossly unremarkable. BONY STRUCTURES: Mild degenerative spondylosis of the lumbar spine most prominently at L1-2. CONCLUSION: 1. No definitive acute CT abnormality. 2. Ancillary findings, as above. Electronically signed by: Colby Koenig MD Board Certified Radiologist 03/02/2018 5:03 AM DIANE Dupree
[2018-03-02 05:09] LABS: Opiate Screen,Urine Neg (Neg)
[2018-03-02 05:40] LABS: CKMB Percent 0.7 % (0.0-4.0); Creatine Kinase MB 287.4 ng/mL (0.5-3.6)
[2018-03-02 06:38] LABS: Hepatitis A IgM Antibody Nonreactive (Nonreactive); Hepatitits B Surface Antigen Nonreactive (Nonreactive)
--- NOTE | 2018-03-02 08:20 | P.CONNP ---
History of Present Illness Service: Nephrology Reason for Consult: Hyponatremia, ELENA Primary Care Provider: UNKNOWN History of Present Illness: This is a 42 year old with polysubstance abuse. His toxicology screen was positive for Amphetamines. He was brought to the ER in an agitated state, and encephalopathy. He has severe hyponatremia and renal failure. UA revealed large blood, but only 5 RBCs. CPK is high, so, he has suffered rhabdomyolysis. Patient reports that he used drugs about 3 days ago, and then developed nausea, vomiting and felt acutely sick. Called 911 yesterday as he was not getting any better. Review of Systems Constitutional: Reports anorexia, Reports body ache(s), Denies chills, Denies weight gain Eyes: Denies blind spots, Denies blurry vision Ears, Nose, Mouth, and Throat: Denies abnormal hearing, Denies bleeding gums, Denies headache(s), Denies neck lump Cardiovascular: Denies chest pain, Denies chest pain at rest, Denies rapid, pounding, or irregular heartbeat Respiratory: Denies shortness of breath Gastrointestinal: Denies abdominal pain PMFSH - History History Provided By: Patient - Medical History Medical History: Medical History (Last Reviewed 03/02/18 @ 08:23 by Rk Ya MD) Polysubstance abuse Schizophrenia - Surgical History Surgical History: Surgical History (Last Reviewed 03/02/18 @ 08:23 by Rk Ya MD) History of facial surgery - Family History Family History: Family History (Last Reviewed 03/02/18 @ 08:23 by Rk Ya MD) Other Family history unknown - Tobacco History Tobacco Use In Past 30 Days: Yes Smoking Status: Current every day smoker Tobacco Type: Cigarettes Packs Per Day: 1 Cigarettes Per Day: 20.0 - Alcohol History How Often Do You Have a Drink Containing Alcohol: 2 to 4 times a month - Substance Use History Substance History: Unable to Obtain - Travel History Recent Travel Out of the Country Within the Last 8 Weeks: No - Immunization History Tetanus Immunization: <5 Years Medications and Allergies Active Medications: Active Medications Acetaminophen (Tylenol) 650 mg PO Q4H PRN PRN Reason: Temp > 100.4 Al Hydroxide/Mg Hydroxide (Milk Of Magnesia Liq) 30 ml PO Q12H PRN PRN Reason: Mild Constipation Bisacodyl (Dulcolax Supp) 10 mg RECTAL DAILY PRN PRN Reason: SEVERE CONSITIPATION Sodium Chloride (Ns Inj) 1,000 mls @ 100 mls/hr IV.CONT .Q10H [facility] Lactulose (Lactulose Liq) 30 ml PO DAILY PRN PRN Reason: SEVERE CONSITIPATION Nystatin (Mycostatin Powder) 1 applicatio TOPICAL QID [facility] Ondansetron HCl (Zofran Inj) 4 mg IV.PUSH Q6H PRN PRN Reason: NAUSEA OR VOMITING Senna/Docusate Sodium (Layne-Colace) 1 tab PO BID [facility] Sennosides (Senokot) 17.2 mg PO Q12H PRN PRN Reason: Moderate Constipation Sodium Chloride (Ns Flush) 2 ml IV.FLUSH BID [facility] Sodium Chloride (Ns Flush) 2 ml IV.FLUSH PRN PRN PRN Reason: FLUSH AFTER USING IV ACCESS Allergies Allergy/AdvReac Type Severity Reaction Status Date / Time No Known Allergies Allergy Verified 03/02/18 01:34 Home Medications Medication Instructions Recorded Confirmed Type No Known Home Medications 03/02/18 03/02/18 History Exam Vital signs: Vital Signs 03/02/18 01:30 03/02/18 01:34 03/02/18 04:01 Pulse Rate 91 H Respiratory Rate 22 22 18 Blood Pressure 131/69 Pulse Oximetry 99 95 03/02/18 05:05 03/02/18 06:00 Pulse Rate 96 H 86 Respiratory Rate 18 16 Blood Pressure 121/84 136/73 Pulse Oximetry 94 L 97 Intake & Output 03/01/18 03/02/18 03/02/18 18:59 06:59 18:59 Intake Total 1999 Output Total 900 / 900 Balance 1100 / 1100 Weight 88 kg Intake: IV 1999 NS Inj 1,000 ML @ Wide Open IV. 1999 SIG BOLUS ONE Rx#:[id number] Output: Urine Amount (Catheter) 900 / 900 Indwelling Urethral Catheter 900 / 900 - Constitutional no acute distress, chronically ill appearing - Routine HEENT Exam Head: Present: normocephalic, atraumatic Eye: Present: EOMI, PERRL - Routine Neck Exam Present: supple. Absent: JVD - Routine Respiratory Exam Present: CTA bilaterally - Routine Cardiovascular Exam Present: RRR, S1, S2 - Routine Abdominal Exam Present: soft, normoactive bowel sounds - Routine Extremities Exam Absent: edema - Routine Skin Exam Present: intact - Routine Neurological Exam Present: alert, oriented X3, CN II-XII intact Results - Lab Results 03/02/18 01:30 03/02/18 01:30 Most recent lab results Calcium 8.6 mg/dL (8.5-10.1) 03/02/18 01:30 Magnesium 3.2 mg/dL (1.5-2.5) H 03/02/18 01:30 Assessment and Plan - Assessment (1) Acute renal failure Code(s): N17.9 - Acute kidney failure, unspecified Status: Acute Plan: likely due to rhabdomyolysis. Continue IVF. Repeat labs. May need dialysis if no improvement is seen. Avoid nephrotoxic agents. Monitor urine output, currently has a Godfrey catheter which probably is not necessary. No hydronephrosis on imaging. (2) Hyponatremia Code(s): E87.1 - Hypo-osmolality and hyponatremia Status: Acute Plan: Hypovolemic hyponatremia? Also had nausea and vomiting, could have resulted in non osmotic release of ADH. Monitor. Continue IVF, I have changed fluids to bicarbonate drip. (3) Rhabdomyolysis Code(s): M62.82 - Rhabdomyolysis Status: Acute Plan: Likely due to methamphetamine use. (4) Polysubstance abuse Code(s): F19.10 - Other psychoactive substance abuse, uncomplicated Status: Acute - Attending Attestation Thanks for the consult. (1) Acute renal failure Qualifiers: Acute renal failure type: unspecified Qualified Code(s): N17.9 - Acute kidney failure, unspecified (3) Rhabdomyolysis Qualifiers: Rhabdomyolysis type: non-traumatic Qualified Code(s): M62.82 - Rhabdomyolysis
--- NOTE | 2018-03-02 08:28 | P.CONPSY ---
Provisional Diagnosis Admission Date: March 02, 2018 03:41 [place] I.: Delirium, polysubstance abuse, amphetamine abuse History of Present Illness Service: Psychiatry Consult date: 03/02/18 Requesting Physician: Heron Sands Reason for Consult: Gennaro baumann Primary Care Provider: UNKNOWN History of Present Illness: Patient is a 42-year-old white male who comes here under Burdick act with a marked altered mental status delirious showing psychotic features to the point where he pulled out to toenails. Patient was seen screen in the ED urine toxicology positive for amphetamines. He was also shown to be in rhabdomyolysis , no other significant metabolic abnormalities. Patient did receive ETO in the ED. Upon review of the EMR shows a long history of multiple drug abuse with this gentleman. In December 2016 he was seen in the ED by her nurse practitioner at that time urine toxicology positive for amphetamines and cocaine. He has had prior positive results for his significantly elevated blood alcohol levels along with other substance use. It appears daily psychiatric contact he has had with us is been doing well with the nurse practitioner saw him in December 2016. At the present time patient laying quietly in bed in his room patient is seen with nurse present throughout session. He is quite sedated but arousable to alert he knows he is in the hospital he did acknowledge my presence is a psychiatrist. He denies suicidality or homicidality voices or visions he is aware that he was Burdick acted. He is vague about his living situation at this time in any event at this time I feel his behaviors are the result of his multiple substance abuse and the physical debilitation and delirium caused by that. At this time I feel he does not meet Burdick act criteria. They do need to further treat his other medical metabolic issues. I would not recommend any psychotropic except perhaps for behavioral control while he is recovering from his metabolic issues. The use of small doses Haldol and benzodiazepine would be appropriate. Thus at this time I will lift the Burdick act it is okay by psych for discharge and patient metabolically stabilized and medically cleared. Perhaps of the recommendation is [facility] for voluntary substance abuse assessment thanks a consult will follow up on a as needed basis Review of Systems All other systems reviewed negative except as stated in HPI PMFSH - History History Provided By: Patient, Medical Record - Medical History Medical History: Medical History (Last Reviewed 03/02/18 @ 08:23 by Rk Ya MD) Polysubstance abuse Schizophrenia - Surgical History Surgical History: Surgical History (Last Reviewed 03/02/18 @ 08:23 by Rk Ya MD) History of facial surgery - Family History Family History: Family History (Last Reviewed 03/02/18 @ 08:23 by Rk Ya MD) Other Family history unknown - Social History I have reviewed the patient's Social History: Yes - Tobacco History Tobacco Use In Past 30 Days: Yes Smoking Status: Current every day smoker Tobacco Type: Cigarettes Packs Per Day: 1 Cigarettes Per Day: 20.0 - Alcohol History How Often Do You Have a Drink Containing Alcohol: 2 to 4 times a month - Substance Use History Substance History: Unable to Obtain - Travel History Recent Travel Out of the Country Within the Last 8 Weeks: No - Immunization History Tetanus Immunization: <5 Years Medications and Allergies Active Medications: Active Medications Acetaminophen (Tylenol) 650 mg PO Q4H PRN PRN Reason: Temp > 100.4 Al Hydroxide/Mg Hydroxide (Milk Of Magnesia Liq) 30 ml PO Q12H PRN PRN Reason: Mild Constipation Bisacodyl (Dulcolax Supp) 10 mg RECTAL DAILY PRN PRN Reason: SEVERE CONSITIPATION Sodium Chloride (Ns Inj) 1,000 mls @ 100 mls/hr IV.CONT .Q10H [facility] Lactulose (Lactulose Liq) 30 ml PO DAILY PRN PRN Reason: SEVERE CONSITIPATION Nystatin (Mycostatin Powder) 1 applicatio TOPICAL QID [facility] Ondansetron HCl (Zofran Inj) 4 mg IV.PUSH Q6H PRN PRN Reason: NAUSEA OR VOMITING Senna/Docusate Sodium (Layne-Colace) 1 tab PO BID [facility] Sennosides (Senokot) 17.2 mg PO Q12H PRN PRN Reason: Moderate Constipation Sodium Chloride (Ns Flush) 2 ml IV.FLUSH BID [facility] Sodium Chloride (Ns Flush) 2 ml IV.FLUSH PRN PRN PRN Reason: FLUSH AFTER USING IV ACCESS Allergies Allergy/AdvReac Type Severity Reaction Status Date / Time No Known Allergies Allergy Verified 03/02/18 01:34 Home Medications Medication Instructions Recorded Confirmed Type No Known Home Medications 03/02/18 03/02/18 History Exam Vital signs: Vital Signs 03/02/18 01:30 03/02/18 01:34 03/02/18 04:01 Pulse Rate 91 H Respiratory Rate 22 22 18 Blood Pressure 131/69 Pulse Oximetry 99 95 03/02/18 05:05 03/02/18 06:00 Pulse Rate 96 H 86 Respiratory Rate 18 16 Blood Pressure 121/84 136/73 Pulse Oximetry 94 L 97 Intake & Output 03/01/18 03/02/18 03/02/18 18:59 06:59 18:59 Intake Total 1999 Output Total 900 / 900 Balance 1100 / 1100 Weight 88 kg Intake: IV 1999 NS Inj 1,000 ML @ Wide Open IV. 1999 SIG BOLUS ONE Rx#:[id number] Output: Urine Amount (Catheter) / Indwelling Urethral Catheter Narrative: [place] [facility] [place] Status Examination Appearance: Appropriate Consciousness: Asleep (Arousable to appropriately responsive) Orientation: Person, Place Motor Activity: Other (Patient laying in bed unable to his ascertain relation) Speech: Slow Language: Adequate Fund of Knowledge: Inadequate Attention and Concentration: Adequate (Fair) Memory: Unremarkable (Fair) Mood: Other (Restricted) Affect: Other (Decreased range and intensity) Thought Process & Associations: Linear Thought Content: Appropriate Hallucination Type: None Delusion Type: None Suicidal Ideation: No Suicidal Plan: No Suicidal Intention: No Homicidal Ideation: No Homicidal Plan: No Assessment and Plan - Assessment (1) Delirium due to another medical condition Code(s): F05 - Delirium due to known physiological condition Status: Acute (2) Polysubstance abuse Code(s): F19.10 - Other psychoactive substance abuse, uncomplicated Status: Acute (3) Amphetamine abuse Code(s): F15.10 - Other stimulant abuse, uncomplicated Status: Acute - Plan Plan: Estimated LOS: [] days Patient does not meet Burdick act criteria at this time we will lift the Burdick act. Would recommend continued treatment of his metabolic issues. Continues with significant substance abuse history. Would suggest judicious use of Haldol and perhaps small dose of benzodiazepine if necessary. It is okay by psych for discharge when medically clear and stable would refer to [facility] act for his substance abuse assessment and treatment thank you consult will follow up on a as needed basis Justification for Continued Inpatient Stay: To be medically cleared and discharged by MedSurg team Discharge Planning: We will keep by psych for discharge when medically cleared and discharged by MedSurg team Request Healthcare Surrogate/Guardian Advocate?: No
[2018-03-02] MEDS: Senna/Docusate Sodium 8.6/50 MG Tablet PO SCH ×2 (09:34→23:55)
[2018-03-02 11:07] LABS: Magnesium 3.2 mg/dL (1.5-2.5)
--- NOTE | 2018-03-02 11:33 | ECG ---
Date Performed: 03/02/2018 Time Performed: 02:10:26 PTAGE: 42 years EKG: ATRIAL FLUTTER/TACHYCARDIA ABNORMAL RHYTHM ECG NO PREVIOUS TRACING DOCTOR: Justin Salas Interpretating Date/Time 03/02/2018 11:30:05
[2018-03-02 11:49] LABS: Calcium 7.9 mg/dL (8.5-10.1)
[2018-03-02 11:59] LABS: CKMB Percent 0.4 % (0.0-4.0); Creatine Kinase MB 193.1 ng/mL (0.5-3.6)
[2018-03-02 15:23] LABS: Alanine Aminotransferase 139 U/L (12-78); Albumin 3.3 g/dL (3.4-5.0); Alkaline Phosphatase 63 U/L (45-117); Anion Gap 11 meq/L (5-15); Aspartate Aminotransferase 320 U/L (15-37); Blood Urea Nitrogen 84 mg/dL (7-18); Calcium 7.9 mg/dL (8.5-10.1); Carbon Dioxide 25.2 meq/L (21.0-32.0); Chloride 93 meq/L (98-107); Glomerular Filtration Rate 26 mL/min (>89); Glucose,Random 164 mg/dL (74-106); Potassium 4.2 meq/L (3.5-5.1); Sodium 129 meq/L (136-145); Total Protein 7.3 g/dL (6.4-8.2)
[2018-03-02] MEDS: Sodium Bicarbonate 8.4% Inj 75 MEQ in Sodium Chloride 0.45 % Inj 925 ML IV.CONT SCH ×2 (15:58→19:07)
[2018-03-02] MEDS: Nystatin 100,000 UNITS/GM Powder 15 GM Bottle TOPICAL SCH ×3 (16:01→23:54)
[2018-03-03] MEDS: Sodium Bicarbonate 8.4% Inj 75 MEQ in Sodium Chloride 0.45 % Inj 925 ML IV.CONT SCH ×2 (01:35→10:50)
[2018-03-03 06:51] LABS: Baso % (Auto) 0.1 % (0.0-2.0); Eos % (Auto) 0.2 % (0.0-4.0); Hematocrit 35.3 % (39.0-51.0); Hemoglobin 12.6 gm/dL (13.0-17.0); Lymph # (Auto) 2.1 th/mm3 (1.0-4.8); Lymph % (Auto) 21.4 % (9.0-44.0); Mean Corpuscular HGB Conc 35.8 % (32.0-36.0); Mean Corpuscular Hemoglobin 30.1 pg (27.0-34.0); Mean Corpuscular Volume 84.3 fL (80.0-100.0); Mean Platelet Volume 8.7 fL (7.0-11.0); Mono # (Auto) 1.4 th/mm3 (0.0-0.9); Mono % (Auto) 13.7 % (0.0-8.0); Neut # (Auto) 6.4 th/mm3 (1.8-7.7); Neut % (Auto) 64.6 % (16.0-70.0); Platelet Count 237 th/mm3 (150-450); Red Blood Count 4.19 mil/mm3 (4.50-5.90); Red Cell Distribution Width 13.4 % (11.6-17.2)
[2018-03-03 07:53] LABS: Calcium 8.2 mg/dL (8.5-10.1); Carbon Dioxide 29.4 meq/L (21.0-32.0); Potassium 4.1 meq/L (3.5-5.1)
[2018-03-03 08:08] LABS: CKMB Percent 0.5 % (0.0-4.0); Creatine Kinase MB 42.1 ng/mL (0.5-3.6)
[2018-03-03] MEDS: Nystatin 100,000 UNITS/GM Powder 15 GM Bottle TOPICAL SCH ×4 (10:46→22:00)
[2018-03-03] MEDS: Senna/Docusate Sodium 8.6/50 MG Tablet PO SCH ×2 (10:47→21:10)
--- NOTE | 2018-03-03 11:27 | P.PNNP ---
Subjective Interval history: Patient was seen, no distress, no complaints. Patient's renal function has improved. Hyponatremia has improved. <Bar Mendieta - Last Filed: 03/03/18 11:21> Physical Exam Vital signs: Vital Signs 03/02/18 12:00 03/02/18 16:00 03/02/18 20:00 Temperature 97.8 F 97.6 F 97.5 F L Pulse Rate 94 H 87 96 H Respiratory Rate 20 20 17 Blood Pressure 136/71 146/80 H 137/78 Pulse Oximetry 96 97 95 03/03/18 00:00 03/03/18 04:00 03/03/18 08:45 Temperature 98.2 F 98.7 F 98.2 F Pulse Rate 83 85 90 Respiratory Rate 19 16 18 Blood Pressure 122/66 112/66 127/66 Pulse Oximetry 98 97 94 L Intake & Output 03/02/18 03/03/18 03/03/18 18:59 06:59 18:59 Intake Total 1000 / 1000 1999 1000 / 1000 Output Total 2150 / 2150 1999 Balance -1150 / -1150 0 / 0 1000 / 1000 Weight 88.1 kg Intake: IV 1999 1000 / 1000 Sodium Bicarbonate 8.4% Inj 75 1999 1000 / 1000 MEQ In 1/2 Normal Saline Inj 925 ML @ 125 mls/hr IV.CONT . Q8H [facility] Rx#:[id number] Oral 1000 / 1000 Output: Urine 2150 / 2150 Urine Amount (Catheter) 1999 Indwelling Urethral Catheter 1999 Other: # Bowel Movements 0 - Constitutional no acute distress - Routine HEENT Exam Head: Present: normocephalic Eye: Present: EOMI ENT: Present: mucous membranes moist - Routine Neck Exam Present: trachea midline. Absent: JVD, tracheal deviation - Routine Respiratory Exam Present: CTA bilaterally. Absent: accessory muscle use, respiratory distress - Routine Cardiovascular Exam Present: RRR - Routine Extremities Exam Absent: edema - Routine Neurological Exam Present: alert, oriented X3 - Routine Psychiatric Exam Present: normal affect - Urinary Catheter Management Indwelling Urethral Catheter Cath placed during this visit: yes Reason for continuing: Hourly intake/output Insertion date: 03/02/18 Insertion time: 03:30 <Bar Mendieta - Last Filed: 03/03/18 11:21> Vital signs: Vital Signs 03/03/18 20:00 03/04/18 00:00 03/04/18 04:00 Temperature 98.6 F 98.8 F 97.4 F L Pulse Rate 81 89 77 Respiratory Rate 16 17 21 Blood Pressure 137/69 129/68 125/60 Pulse Oximetry 96 93 L 94 L 03/04/18 07:49 03/04/18 11:29 Temperature 98.3 F 98.7 F Pulse Rate 83 91 H Respiratory Rate 20 18 Blood Pressure 140/81 155/74 H Pulse Oximetry 95 97 Intake & Output 03/03/18 03/04/18 03/04/18 18:59 06:59 18:59 Intake Total 1475 / 1475 1000 / 1000 1000 / 1000 Output Total 1250 / 1250 1200 / 1200 Balance 225 / 225 -200 / -200 1000 / 1000 Weight 88.1 kg Intake: IV 1475 / 1475 1000 / 1000 1000 / 1000 NS Inj 1,000 ML @ 100 mls/hr IV 1000 / 1000 1000 / 1000 .CONT .Q10H [facility] Rx#:[id number] Sodium Bicarbonate 8.4% Inj 75 1475 / 1475 MEQ In 1/2 Normal Saline Inj 925 ML @ 125 mls/hr IV.CONT . Q8H [facility] Rx#:[id number] Output: Urine 1250 / 1250 800 / 800 Urine Amount (Catheter) 400 / 400 Indwelling Urethral Catheter 400 / 400 Other: Date of Last Bowel Movement 03/04/18 # Bowel Movements 0 1 - Urinary Catheter Management Indwelling Urethral Catheter Cath placed during this visit: no <Avni Muniz - Last Filed: 03/04/18 14:47> Assessment and Plan - Assessment (1) Acute renal failure Code(s): N17.9 - Acute kidney failure, unspecified Status: Acute Qualifiers: Acute renal failure type: unspecified Qualified Code(s): N17.9 - Acute kidney failure, unspecified Plan: Likely due to rhabdomyolysis. Patient's renal function has improved today. Avoid nephrotoxic agents. Monitor urine output, currently has a Godfrey catheter which probably is not necessary. Nephrology will sign off at this time. (2) Hyponatremia Code(s): E87.1 - Hypo-osmolality and hyponatremia Status: Acute Plan: Hypovolemic hyponatremia? Also had nausea and vomiting, could have resulted in non osmotic release of ADH. Has improved. (3) Rhabdomyolysis Code(s): M62.82 - Rhabdomyolysis Status: Acute Qualifiers: Rhabdomyolysis type: non-traumatic Qualified Code(s): M62.82 - Rhabdomyolysis Plan: Likely due to methamphetamine use. (4) Polysubstance abuse Code(s): F19.10 - Other psychoactive substance abuse, uncomplicated Status: Acute <Bar Mendieta - Last Filed: 03/03/18 11:21> - Assessment (1) Acute renal failure Code(s): N17.9 - Acute kidney failure, unspecified Status: Acute Qualifiers: Acute renal failure type: unspecified Qualified Code(s): N17.9 - Acute kidney failure, unspecified (2) Hyponatremia Code(s): E87.1 - Hypo-osmolality and hyponatremia Status: Acute (3) Rhabdomyolysis Code(s): M62.82 - Rhabdomyolysis Status: Acute Qualifiers: Rhabdomyolysis type: non-traumatic Qualified Code(s): M62.82 - Rhabdomyolysis (4) Polysubstance abuse Code(s): F19.10 - Other psychoactive substance abuse, uncomplicated Status: Acute - Attending Attestation patient was seen and examined. Agree with above assessment and plan. <Avni Muniz - Last Filed: 03/04/18 14:47>
--- NOTE | 2018-03-03 12:10 | P.PNIM ---
Subjective Interval history: Follow up psychosis and rhabdomyolysis. Patient is oriented x 2. Burdick act was lifted by psych, and recommended to be refereed to [facility]. Patient is compaining of pain all over. Per RN patient has been tugging on Kee and causing trauma. Physical Exam Vital signs: Last Vital Signs Temp 98.2 F 03/03/18 08:45 Pulse 90 03/03/18 08:45 Resp 18 03/03/18 08:45 BP 127/66 03/03/18 08:45 Pulse Ox 94 L 03/03/18 08:45 Intake & Output 03/01/18 03/02/18 03/03/18 03/04/18 06:59 06:59 06:59 06:59 Intake Total 2000 / 2000 3000 / 3000 1000 / 1000 Output Total 900 / 900 4150 / 4150 Balance 1100 / 1100 -1150 / -1150 1000 / 1000 Weight 88 kg 88.1 kg Narrative: GENERAL: In no distress SKIN: Warm and dry. HEAD: Normocephalic. EYES: No scleral icterus. No injection or drainage. NECK: Supple, trachea midline. No JVD or lymphadenopathy. CARDIOVASCULAR: Regular rate and rhythm without murmurs, gallops, or rubs. RESPIRATORY: Breath sounds equal bilaterally. No accessory muscle use. GASTROINTESTINAL: Abdomen soft, non-tender, nondistended. MUSCULOSKELETAL: No cyanosis, or edema. Urinary Catheter Management Indwelling Urethral Catheter: Cath placed during this visit: yes Urethral indwelling: No Insertion date: 03/02/18 Insertion time: 03:30 Results Labs CBC & Chem 7: 03/03/18 04:56 03/03/18 04:56 Labs: Microbiology 03/02/18 03:30 Clean Catch Urine Urine Culture - Final 10-50,000 cfu/mL mixed gram positive maribell (probable contaminants) 03/02/18 03:30 Wound - Scrotum Gram Stain - Final Assessment and Plan (1) Acute renal failure: Code(s): N17.9 - Acute kidney failure, unspecified Status: Acute (2) Hyponatremia: Code(s): E87.1 - Hypo-osmolality and hyponatremia Status: Acute (3) Rhabdomyolysis: Code(s): M62.82 - Rhabdomyolysis Status: Acute (4) Polysubstance abuse: Code(s): F19.10 - Other psychoactive substance abuse, uncomplicated Status: Acute Plan Rhabdomyolysis, CK down to 9182 from 45,000 -Cont IVF for at least one more day -recheck CK in AM Acute renal failure, resolved BUN/creatinine 111/6.74, baseline creatinine 1.0, currently back to baseline -CT of the abdomen/pelvis pending -Nephrology has signed off -DC kee Acute psychosis -Patient with history of methamphetamine abuse and schizophrenia, unclear if he is currently taking medications -Psychiatry consulted, does not meet inpatient criteria, suggest follow up with [facility] Hyponatremia Sodium 122 on admission, currently 134 -Cont OVF -Monitor Transaminitis -Suspect secondary to alcohol abuse and dehydration -Hepatitis C positive -labs in am -Consult GI if labs do not return to baseline Yeast, Erythema and drainage of the genital region -Nystatin powder Discharge Planning: Possible DC 1-2 days if patients mentation resolves. He may need placement if he is not a safe discharge. _ (1) Acute renal failure Qualifiers: Acute renal failure type: unspecified Qualified Code(s): N17.9 - Acute kidney failure, unspecified (2) Rhabdomyolysis Qualifiers: Encounter type: Rhabdomyolysis type: non-traumatic Qualified Code(s): M62.82 - Rhabdomyolysis
[2018-03-03] MEDS: Sod Chloride 0.9% Inj 1,000 ML IV.CONT SCH ×2 (12:20→23:21)
[2018-03-04 05:02] LABS: Albumin 2.8 g/dL (3.4-5.0); Anion Gap 7 meq/L (5-15); Aspartate Aminotransferase 225 U/L (15-37); Blood Urea Nitrogen 19 mg/dL (7-18); Calcium 8.1 mg/dL (8.5-10.1); Carbon Dioxide 27.5 meq/L (21.0-32.0); Chloride 101 meq/L (98-107); Glomerular Filtration Rate Greater Than 89 mL/min (>89); Glucose,Random 97 mg/dL (74-106); Potassium 4.2 meq/L (3.5-5.1); Sodium 135 meq/L (136-145)
[2018-03-04 05:06] LABS: Alanine Aminotransferase 131 U/L (12-78); Alkaline Phosphatase 62 U/L (45-117); Creatine Kinase 5635 U/L (39-308); Total Protein 6.6 g/dL (6.4-8.2)
[2018-03-04 05:25] LABS: CKMB Percent 0.2 % (0.0-4.0); Creatine Kinase MB 13.5 ng/mL (0.5-3.6)
[2018-03-04] MEDS: Senna/Docusate Sodium 8.6/50 MG Tablet PO SCH (09:51)
[2018-03-04] MEDS: Sod Chloride 0.9% Inj 1,000 ML IV.CONT SCH (09:51)
[2018-03-04] MEDS: Nystatin 100,000 UNITS/GM Powder 15 GM Bottle TOPICAL SCH ×2 (09:52→12:37)
--- NOTE | 2018-03-04 10:51 | P.PN ---
Subjective Interval history: Follow up for psychosis, AMS, rhabdo, ELENA, N/V: Patient seen and examined, awake alert oriented x3. No focal deficits. No more nausea and vomiting. Patient denies daily substance abuse, states that he did meth and cocaine x1 a few days ago, it was given by a friend. Patient believes that the drugs were tainted. He admits to IV drug use a few years ago, has scars from abscess to right antecubital area. Complains of burning and epigastric discomfort after eating meals, indicates that prior to coming to hospital he had excessive nausea and vomiting. Physical Exam Vital signs: Vital Signs 03/03/18 11:55 03/03/18 20:00 03/04/18 00:00 Temperature 97.9 F 98.6 F 98.8 F Pulse Rate 87 81 89 Respiratory Rate 16 16 17 Blood Pressure 125/75 137/69 129/68 Pulse Oximetry 98 96 93 L 03/04/18 04:00 03/04/18 07:49 Temperature 97.4 F L 98.3 F Pulse Rate 77 83 Respiratory Rate 21 20 Blood Pressure 125/60 140/81 Pulse Oximetry 94 L 95 Intake & Output 03/03/18 03/04/18 03/04/18 18:59 06:59 18:59 Intake Total 1475 / 1475 1000 / 1000 1000 / 1000 Output Total 1250 / 1250 1200 / 1200 Balance 225 / 225 -200 / -200 1000 / 1000 Weight 88.1 kg Intake: IV 1475 / 1475 1000 / 1000 1000 / 1000 NS Inj 1,000 ML @ 100 mls/hr IV 1000 / 1000 1000 / 1000 .CONT .Q10H [facility] Rx#:[id number] Sodium Bicarbonate 8.4% Inj 75 1475 / 1475 MEQ In 1/2 Normal Saline Inj 925 ML @ 125 mls/hr IV.CONT . Q8H [facility] Rx#:[id number] Output: Urine 1250 / 1250 800 / 800 Urine Amount (Catheter) 400 / 400 Indwelling Urethral Catheter 400 / 400 Other: Date of Last Bowel Movement 03/04/18 # Bowel Movements 0 1 Narrative: GENERAL: 42-year-old well-developed well-nourished male, no apparent distress SKIN: Warm and dry. HEAD: Normocephalic. EYES: No scleral icterus. No injection or drainage. NECK: Supple, trachea midline. No JVD or lymphadenopathy. CARDIOVASCULAR: Regular rate and rhythm without murmurs, gallops, or rubs. RESPIRATORY: Breath sounds equal bilaterally. No accessory muscle use. GASTROINTESTINAL: Abdomen soft, non-tender, nondistended. MUSCULOSKELETAL: No cyanosis, or edema. NEUROLOGICAL: Awake, alert oriented x3. No focal deficits. - Urinary Catheter Management Indwelling Urethral Catheter Cath placed during this visit: yes, but has since been removed by the nurse Urethral indwelling: No Reason for continuing: Hourly intake/output Insertion date: 03/02/18 Insertion time: 03:30 Removal date: 03/03/18 Removal time: 22:00 Results - Labs CBC & Chem 7: 03/03/18 04:56 03/04/18 02:42 Laboratory Results - last 24 hr 03/04/18 02:42 Sodium 135 L Potassium 4.2 Chloride 101 Carbon Dioxide 27.5 Anion Gap 7 BUN 19 H Creatinine 0.80 Estimated GFR Greater than 89 Random Glucose 97 Calcium 8.1 L Total Bilirubin 0.4 AST 225 H ALT 131 H Alkaline Phosphatase 62 Total Creatine Kinase 5635 H CK-MB (CK-2) 13.5 H CK-MB (CK-2) % 0.2 Total Protein 6.6 D Albumin 2.8 L Microbiology 03/02/18 03:30 Wound - Scrotum Gram Stain - Final 03/02/18 03:30 Wound - Scrotum Wound Culture - Preliminary gram negative rods Staphylococcus aureus 03/02/18 03:30 Clean Catch Urine Urine Culture - Final 10-50,000 cfu/mL mixed gram positive maribell (probable contaminants) Assessment and Plan - Assessment (1) Acute renal failure Code(s): N17.9 - Acute kidney failure, unspecified Status: Acute (2) Hyponatremia Code(s): E87.1 - Hypo-osmolality and hyponatremia Status: Acute (3) Rhabdomyolysis Code(s): M62.82 - Rhabdomyolysis Status: Acute (4) Polysubstance abuse Code(s): F19.10 - Other psychoactive substance abuse, uncomplicated Status: Acute - Plan 42-year-old male with a past medical history significant for polysubstance abuse and schizophrenia presents to the emergency department by EMS for evaluation of multiple complaints. Pt. was found agitated, altered. C/O not feeling well for 2 days, had N/V. Pulled a toenail and fingernail on arrival to ED. Rhabdomyolysis, CK down to 9182 from 45,000 -CPK 5635 today -continue with NS at 100/hr -Repeat CPK in am Acute renal failure, resolved BUN/creatinine 111/6.74, baseline creatinine 1.0, currently back to baseline -CT of the abdomen/pelvis done, no acute findings. -Nephrology has signed off -Godfrey has been removed Acute psychosis -Patient with history of methamphetamine abuse and schizophrenia, unclear if he was currently taking medications -Psychiatry consulted, does not meet inpatient criteria, suggest follow up with [facility] -pt denies active drug use, admits to using Meth and cocaine a few days ago. He believes that drugs were tainted. Hx of IVDU and previous right AC abscess. Indicates that he went to [facility] at one point. Does not want to go to [facility], believes he has no problems. Hyponatremia Sodium 122 on admission, currently 134 -continue IVF -Monitor BMP in am N/V resolved C/O heartburn -Add Pepcid 20 mg PO BID and Carafate 1 gram PO AC Transaminitis -Suspect secondary to alcohol abuse and dehydration -Hepatitis C positive -LFTs trending down Discussed with patient findings of hepatitis panel, prior history of IV drug use. Patient is interested in treatment, recommends that he f/u as OP with GI or Health department. Yeast, Erythema and drainage of the genital region -Nystatin powder Possible dc tomorrow if CPK trending down Labs in am Code Status: Full code Discussed Condition With: RN, pt, CM Discharge Planning: Poss dc home tomorrow if CPK trending down (1) Acute renal failure Qualifiers: Acute renal failure type: unspecified Qualified Code(s): N17.9 - Acute kidney failure, unspecified (3) Rhabdomyolysis Qualifiers: Rhabdomyolysis type: non-traumatic Qualified Code(s): M62.82 - Rhabdomyolysis
[2018-03-04 12:14] VITALS: BP 155/74; PULSE 91; RESP 18; TEMP 98.7; O2SAT 97
[2018-03-04] MEDS ORDERED: Famotidine 20 MG Tablet PO SCH (13:00)
[2018-03-04] MEDS ORDERED: Sucralfate 1 GM Tablet PO SCH (13:00)
--- NOTE | 2018-03-05 07:35 | P.AMA ---
AMA Note - Diagnosis (1) Acute renal failure (2) Hyponatremia (3) Rhabdomyolysis (4) Polysubstance abuse AMA Statement: Patient Finesse Gomez has decided to leave the hospital against medical advice. This patient has the capacity to refuse care and understands the risks of leaving, including permanent disability and/or , and has had an opportunity to ask questions about his/her condition. The patient has been informed that he/she may return for care at any time, and follow up has been arranged/advised. Discharge Disposition: Against Medical Advice Patient Condition on Discharge: Good
== END 2018-03-04 17:31 | disposition left against medical advice (07) | DRG 683 ==
LOC: NEPE 01:02 → NEDA 03:41 → N05 05:30
PROVIDERS: ADMIT Family Medicine; ATTEND Family Medicine
DX: M62.82 Rhabdomyolysis; R12 Heartburn; F17.210 Nicotine dependence, cigarettes, uncomplicated; E87.1 Hypo-osmolality and hyponatremia; F15.90 Other stimulant use, unspecified, uncomplicated; F20.9 Schizophrenia, unspecified; N17.9 Acute kidney failure, unspecified; R45.851 Suicidal ideations; B19.20 Unspecified viral hepatitis C without hepatic coma; B37.9 Candidiasis, unspecified; R74.0 Nonspecific elevation of levels of transaminase and lactic acid dehydrogenase [LDH]; F05 Delirium due to known physiological condition; R11.2 Nausea with vomiting, unspecified; F19.10 Other psychoactive substance abuse, uncomplicated; E86.0 Dehydration
CPT/HCPCS: 51702; 71010; 71045; 74176; 80048; 80053; 80074; 80307; 81001; 82550; 82552; 83735; 84443; 84484; 85025; 86403; 87070; 87077; 87086; 87147; 87181; 87185; 87186; 87205; 90761; 90772; 90774; 90782; 90784; 93005; 96361; 96372; 96374; 99285; C8952; J1630; J2060; J7030